=== PATIENT | female | born 1995 | race Caucasian/White ===

== ENCOUNTER 2020-01-13 11:22 | Emergency (ER) | payer OTHER, SELFPAY ==
[2020-01-13 11:32] VITALS: BP 150/93; PULSE 98; RESP 18; TEMP 37.4; O2SAT 100
--- NOTE | 2020-01-13 11:51 | ED.EAR ---
HPI - Ear Problem General Chief complaint: Ear Stated complaint: ear pain/nausea Time Seen by Provider: 01/13/20 11:53 Source: patient and RN notes reviewed Mode of arrival: ambulatory Limitations: no limitations History of Present Illness HPI Narrative: 24-year-old female presents with concern for right ear pain, nausea, dizziness with room spinning. Reports a history of problems with her ears, several sets of tympanostomy tubes. Reports ear pain with some dizziness 1 to 2 weeks ago that resolved. Reports she woke up this morning with right ear pain, room spinning. Reports nausea with vomiting today. Denies current symptoms of dizziness, nausea, vomiting. Denies abdominal pain. Denies headache, weakness in any extremity. MD Complaint: ear pain and other (Dizziness with nausea) Location: right ear Related Data Home Medications Medication Instructions Recorded Confirmed norethindrone-ethin estradiol tablet 01/13/20 [Jeannine (30)] Allergies Allergy/AdvReac Type Severity Reaction Status Date / Time acetaminophen Allergy Mild Unknown Verified 01/13/20 11:32 chlorpheniramine Allergy Mild Unknown Verified 01/13/20 11:32 hydrocodone Allergy Unknown Verified 01/13/20 11:32 CHLORPHENIRAMINE MALEATE Allergy Mild Unknown Uncoded 01/13/20 11:32 DEXTROMETHORPHAN HBR Allergy Mild Unknown Uncoded 01/13/20 11:32 PHENYLPROPANOLAMINE HCL Allergy Mild Unknown Uncoded 01/13/20 11:32 Review of Systems Review of Systems: Narrative: CONSTITUTIONAL: Denies malaise, chills, sweats, or fever. EYES: Denies visual changes, redness, or discharge. ENT: Denies rhinorrhea, congestion, sinus pain, or sore throat. Reports right ear pain CARDIOVASCULAR: Denies chest pain, palpitations, or edema. RESPIRATORY: Denies cough or dyspnea. GASTROINTESTINAL: Denies abdominal pain, diarrhea. Reports nausea vomiting MUSCULOSKELETAL: Denies myalgia. NEUROLOGIC: Denies numbness, weakness, or headache. Reports vertigo All systems reviewed & are unremarkable except as noted in HPI and below PMFSH Comments At time of signature, agree with nursing past medical, surgical, social and family history. There is no relevant family history pertinent to the presenting complaint Exam Narrative: Exam Narrative: GENERAL: Well-appearing, well-nourished, and in no acute distress. HEAD: Normocephalic, atraumatic. EYES: PERRLA, conjunctivae clear, and EOMI. No nystagmus. ENT: Nares clear, turbinates pink, no rhinorrhea or epistaxis. Mucous membranes moist. TM pearly holley with dull light reflex bilaterally; no tragal tenderness. Oropharynx without erythema or lesions. Tonsils not enlarged and without exudate. NECK: Supple. No lymphadenopathy. CHEST: No respiratory distress. Clear to auscultation. No bony deformities, no asymmetry. Speaks in full sentences. HEART: Regular rate and rhythm. ABDOMEN: Soft, nontender, nondistended, normal active bowel sounds, no palpable masses. EXTREMITIES: Normal range of motion. No edema. Normal strength and sensation. SKIN: Warm, dry, no rash. NEURO: Alert and oriented x3. No focal deficits. Cranial nerves II through XII grossly intact PSYCH: Normal mood and affect Course Course Emergency Course: Patient is aware of diagnosis, understands and agrees to treatment plan. Anticipatory guidance given. Patient agrees to follow-up as directed and is aware of reasons to seek care at the emergency department. Portions of this record may have been created with voice recognition software Vital Signs Vital signs: Vital Signs Temperature 99.4 F 01/13/20 11:32 Pulse Rate 98 01/13/20 11:32 Respiratory Rate 18 01/13/20 11:32 Blood Pressure 150/93 H 01/13/20 11:32 Pulse Oximetry 100 01/13/20 11:32 Temperature 99.4 F 01/13/20 11:32 Pulse Rate 98 01/13/20 11:32 Respiratory Rate 18 01/13/20 11:32 Blood Pressure 150/93 H 01/13/20 11:32 Pulse Oximetry 100 01/13/20 11:32 Reviewed. Patient has been instructed to follow
== END 2020-01-13 12:10 | disposition home or self-care (01) ==
PROVIDERS: Emergency Provider Nurse Practitioner; PCP Physician Assistant
DX: H81.10 Benign paroxysmal vertigo, unspecified ear (principal); J45.909 Unspecified asthma, uncomplicated
CPT/HCPCS: 99213; G0463